=== PATIENT | male | born 1970 | race Caucasian/White ===

== ENCOUNTER 2022-06-01 12:06 | Day surgery (SDC) | payer OTHER, SELFPAY ==
[2022-05-20 09:09] VITALS: BMI 26.1
[2022-05-20 10:26] VITALS: BMI 25.2
[2022-06-01 12:20] VITALS: BP 136/77; PULSE 68; RESP 18; TEMP 37.2; O2SAT 100
--- NOTE | 2022-06-01 12:34 | WPDANESEPPF ---
Anes - Initial Pre Proc Eval Procedure: Operation Date: 06/01/22 13:45 Proposed Procedures p Screening Colonoscopy - Paul Young MD Date/Time: 06/01/22 12:34 Surgeon: Paul Young MD Pre Op Diagnosis: Neoplasm Screening Patient Data Age: 51 Gender: M Height: 1.8 m Weight: 81.2 kg Allergies Allergy/AdvReac Type Severity Reaction Status Date / Time erythromycin base Allergy Mild Rash Verified 06/01/22 12:23 Home Medications Medication Instructions Recorded Confirmed Type fexofenadine-pseudoephedrine ER 1 tablet PO DAILY 03/09/22 05/20/22 History 180 mg-240 mg tablet,ext.release 24 hr (Khadra-D 24 Hour) multivitamin 1 tablet PO DAILY 03/09/22 05/20/22 History tadalafil 20 mg tablet (Cialis) 20 mg PO DAILY PRN sexual activity 03/09/22 05/20/22 History valsartan 320 1 tablet PO DAILY #90 tabs 04/01/22 05/20/22 Rx mg-hydrochlorothiazide 12.5 mg tablet sodium,potassium,mag sulfates 17.5 See Rx Instructions PO .COMPLEX 05/20/22 05/20/22 Rx gram-3.13 gram-1.6 gram oral soln #354 mL (Suprep Bowel Prep Kit) syringe with needle 3 mL 25 x 1 #100 ea 05/20/22 05/20/22 Rx 1/2 (BD Luer-Sharmin Syringe) testosterone cypionate 200 mg/mL See Rx Instructions IM ONCE 05/21/22 History intramuscular kit Patient hx anesthesia problems: none Family hx anesthesia problems: none Results Review: All pre-operative results and documents have been reviewed as part of the pre-operative evaluation. 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 Prostate cancer screening Radius fracture Seasonal allergies Testicular hypofunction Ulna fracture Umbilical hernia Surgical History Surgical History History of ureteroscopy Social History Social History Smoking status: Never smoker Second hand tobacco smoke exposure: No Alcohol intake: never Substance use: never Substance use type: does not use Lack of Transportation: No Lack of Food: Never True Current Housing: I Have Housing Concerned About Future Housing: No Difficulty Paying Gas/Electric Bills: No Difficulty Paying for Meds: No Currently Unemployed: No Education: Trade/Vocational Certificate Difficulty w/ Childcare or Family Care: No Living arrangements: with family Gender identity (if verbalized by the patient): Male Spiritual care concerns: No Anes - Eval Final PreProcedure Day of Procedure 06/01/22 12:34 Patient weight: normal Heart: regular rate and rhythm Lungs: clear to auscultation Airway: Mallampati scale class II Neurological: alert and oriented Last oral intake: >/= 8 hours ASA classification: II Emergent: no Anesthetic plan: proceed Anesthesia type and monitoring: general GIVS and standard monitoring Results Review: All pre-operative results and documents have been reviewed as part of the pre-operative evaluation. Informed Consent: The patient's anesthetic plan and its attendant risks and benefits were discussed with the patient/family/POA. Questions were solicited and answers provided to the satisfaction of the patient/family/POA.
[2022-06-01] MEDS: LACTATED RINGERS 1,000 ML 150 ML IV CONT (12:38)
--- NOTE | 2022-06-01 13:18 | PM.HPGS ---
History of Present Illness History of Present Illness Consent: Risks, benefits, and alternatives have been discussed and questions answered. Patient agrees to proceed with procedure. Chief complaint: Neoplasm Screening Narrative: Ying Quiñones is a 51 year old male Presents for screening colonoscopy. Patient's current weight appetite and bowel movements are normal. Patient denies abdominal pain. He has had no bleeding. Family history Significant both mother and father have had colon polyps. Review of Systems Review of Systems: Review of systems noncontributory. 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 Prostate cancer screening Radius fracture Seasonal allergies Testicular hypofunction Ulna fracture Umbilical hernia Surgical History Surgical History History of ureteroscopy Social History Social History Smoking status: Never smoker Second hand tobacco smoke exposure: No Alcohol intake: never Substance use: never Substance use type: does not use Lack of Transportation: No Lack of Food: Never True Current Housing: I Have Housing Concerned About Future Housing: No Difficulty Paying Gas/Electric Bills: No Difficulty Paying for Meds: No Currently Unemployed: No Education: Trade/Vocational Certificate Difficulty w/ Childcare or Family Care: No Living arrangements: with family Gender identity (if verbalized by the patient): Male Spiritual care concerns: No Meds Home Medications and Allergies Home Medications Medication Instructions Recorded Confirmed Type fexofenadine-pseudoephedrine ER 1 tablet PO DAILY 03/09/22 05/20/22 History 180 mg-240 mg tablet,ext.release 24 hr (Khadra-D 24 Hour) multivitamin 1 tablet PO DAILY 03/09/22 05/20/22 History tadalafil 20 mg tablet (Cialis) 20 mg PO DAILY PRN sexual activity 03/09/22 05/20/22 History valsartan 320 1 tablet PO DAILY #90 tabs 04/01/22 05/20/22 Rx mg-hydrochlorothiazide 12.5 mg tablet sodium,potassium,mag sulfates 17.5 See Rx Instructions PO .COMPLEX 05/20/22 05/20/22 Rx gram-3.13 gram-1.6 gram oral soln #354 mL (Suprep Bowel Prep Kit) syringe with needle 3 mL 25 x 1 #100 ea 05/20/22 05/20/22 Rx 1/2 (BD Luer-Sharmin Syringe) testosterone cypionate 200 mg/mL See Rx Instructions IM ONCE 05/21/22 History intramuscular kit Allergies Allergy/AdvReac Type Severity Reaction Status Date / Time erythromycin base Allergy Mild Rash Verified 06/01/22 12:23 Vital Signs Vital Signs - 24 hr 06/01/22 12:20 Temperature 99 F Pulse Rate 68 Respiratory Rate 18 Blood Pressure 136/77 Pulse Oximetry 100 Oxygen Delivery Room Air Exam Narrative: Physical exam reveals patient to be alert. Vital signs stable. HEENT exam is unremarkable. Patient is anicteric. Lungs are clear to auscultation and percussion. Heart is without murmur or extra sounds. Abdomen bowel sounds present soft nontender with no organomegaly. Digital external rectal exam is normal. Assessment and Plan Assessment and plan (1) Colon cancer screening: Code(s): Z12.11 - Encounter for screening for malignant neoplasm of colon Status: Acute Assessment and Plan: Patient presents today for screening colonoscopy. Family history is significant both mother and father have had colon polyps. Plan for screening colonoscopy further recommendations will be given after endoscopy.
[2022-06-01 14:06] VITALS: BP 100/57; PULSE 65; RESP 16; O2SAT 98
[2022-06-01 14:16] VITALS: BP 96/55; PULSE 65; RESP 16; O2SAT 100
--- NOTE | 2022-06-01 14:23 | WPDANESPN ---
Anes - Prog Note Post-Op Date/Time: 06/01/22 14:23 Cardiovascular status: normal Respiratory status: normal Airway patency: baseline Mental status: baseline Post-Op hydration status: normal Vital Signs: Last Vital Signs Temp 37.2 C 06/01/22 12:20 Pulse 65 06/01/22 14:16 Resp 16 06/01/22 14:16 BP 96/55 L 06/01/22 14:16 Pulse Ox 100 06/01/22 14:16 O2 Del Method Room Air 06/01/22 14:16 Pain Score (VAS): 0 I/O: Intake & Output 05/31/22 06/01/22 06/01/22 23:59 07:59 15:59 Intake Total 675 Balance 675 Patient Feedback: Patient satisfied with anesthetic care.
[2022-06-01 14:25] VITALS: BP 114/81; PULSE 64; RESP 16
--- NOTE | 2022-06-01 14:35 | SUR.PHASEII ---
PT AWAKE AND ALERT. DENIES PAIN. EATING AND DRINKING. READY FOR DISCHARGE.
== END 2022-06-01 14:43 | disposition home or self-care (01) ==
PROVIDERS: PCP Internal Medicine; Visit Provider Internal Medicine Gastroenterology
PROC: 0DJD8ZZ Inspection of Lower Intestinal Tract, Via Natural or Artificial Opening Endoscopic (ICD-10-PCS; CPT 45378; principal; 2022-06-01 13:45)
DX: Z12.11 Encounter for screening for malignant neoplasm of colon (principal)
CPT/HCPCS: 45378

== ENCOUNTER 2023-12-05 12:22 | Emergency (ER) | payer OTHER, BC, SELFPAY ==
--- NOTE | ~2023-12-05 | XR_ITS ---
1 foot Technique: AP, oblique, and lateral views were obtained. Clinical History: Injury Findings: No acute fracture or dislocation is seen. Osseous alignment is anatomic. There is mild dege nerative change about the first MTP joint. Soft tissues are unremarkable. Impression: No acute abnormality. Mild degenerative change of the first MTP joint. Reviewed, dictated and finalized at location . Impression: No acute abnormality. Mild degenerative change of the first MTP joint.
[2023-12-05 12:29] VITALS: BP 131/62; PULSE 82; RESP 16; TEMP 37.1; O2SAT 98
--- NOTE | 2023-12-05 12:36 | ED.LOWEXIN ---
HPI - Extremity Injury (Lower) General Chief Complaint: Extremity Injury, Lower Stated Complaint: Injured Left Foot Time Seen by Provider: 12/05/23 12:36 Source: patient Mode of arrival: ambulatory Limitations: no limitations History of Present Illness HPI Narrative: 53 yo M presents with c/o pain to dorsal aspect L foot after dropping cabinet onto foot. States cabinet was solid wood and was inside of a box. Ambulatory with limp. Was wearing work boots at time of injury. All systems reviewed and negative except as noted above. Related Data Home Medications Medication Instructions Recorded Confirmed multivitamin 1 tablet PO DAILY 03/09/22 12/05/23 tadalafil 20 mg tablet (Cialis) 20 mg PO DAILY PRN sexual activity 03/09/22 12/05/23 fluticasone propionate 50 2 spray intranasal DAILY 06/16/23 12/05/23 mcg/actuation nasal spray,suspension Allergies Allergy/AdvReac Type Severity Reaction Status Date / Time erythromycin base Allergy Mild Rash Verified 12/05/23 12:28 Review of Systems Review of Systems: CONSTITUTIONAL: Denies fever, chills, or sweats. EYES: Denies visual changes, redness, or discharge. ENT: Denies rhinorrhea, congestion, sore throat, or otalgia. CARDIOVASCULAR: Denies chest pain, palpitations, or edema. RESPIRATORY: Denies cough or dyspnea. GASTROINTESTINAL: Denies abdominal pain, nausea, vomiting, or diarrhea. GENITOURINARY: Denies dysuria or hematuria. SKIN: Denies rash or itching. MUSCULOSKELETAL: Reports pain and swelling to dorsal aspect of left foot. NEUROLOGIC: Denies headache, numbness, or weakness. PSYCHIATRIC: Denies anxiety or depression. All other systems reviewed are negative, except as documented in HPI. [facility] Past Medical History Medical History Benign essential hypertension BMI 26.0-26.9,adult Colon cancer screening Encounter for preventive health examination Encounter for routine adult health examination without abnormal findings Encounter to establish care FHx: coronary artery disease High frequency hearing loss History of kidney stones On correction drug therapy Onychomycosis Prostate cancer screening Radius fracture Seasonal allergies Testicular hypofunction Ulna fracture Umbilical hernia Surgical History Surgical History History of ureteroscopy Social History Social History Smoking status: Never smoker Second hand tobacco smoke exposure: No Alcohol intake: never Substance use: never Substance use type: does not use Lack of Transportation: No Lack of Food: Never True Current Housing: I Have Housing Concerned About Future Housing: No Difficulty Paying Gas/Electric Bills: No Difficulty Paying for Meds: No Currently Unemployed: No Education: Trade/Vocational Certificate Difficulty w/ Childcare or Family Care: No Living arrangements: with family Occupation/Education: occupation Gender identity (if verbalized by the patient): Male Spiritual care concerns: No Comments At time of signature, agree with nursing past medical, surgical, social and family history. There is no relevant family history pertinent to the presenting complaint. Exam Narrative: GENERAL: This is a well-nourished, well-developed patient, in no apparent distress. HEAD: normocephalic, atraumatic. EYES: PERRL. Sclera clear/white. Vision is grossly intact. EARS: External ears normal NOSE: External nose normal NECK: Neck supple, non-tender without lymphadenopathy, masses or thyromegaly. CARDIOVASCULAR: Regular rate and rhythm without murmurs, gallops, or rubs. RESPIRATORY: Clear to auscultation. Breath sounds equal bilaterally. No wheezes, rales, or rhonchi. SKIN: warm, Dry, intact with no suspicious lesions or rash, good texture and turgor. NEURO: awake, alert, and oriented to person, shanelle
== END 2023-12-05 13:06 | disposition home or self-care (01) ==
PROVIDERS: Emergency Provider Nurse Practitioner Family; PCP Internal Medicine
DX: S90.32XA Contusion of left foot, initial encounter (principal); W20.8XXA Other cause of strike by thrown, projected or falling object, initial encounter; I10 Essential (primary) hypertension
CPT/HCPCS: 73630; 99213; G0463

== ENCOUNTER 2023-12-27 15:15 | Outpatient (CLI) | payer BC, SELFPAY ==
--- NOTE | ~2023-12-27 | XR_ITS ---
Right Knee Technique: AP, lateral, and sunrise views were obtained. Clinical History: Pain Findings: No fracture or dislocation is seen. Osseous alignment is anatomic. There is minimal spurrin g at the lateral joint line and patella. Soft tissues are unremarkable. No joint effusion is seen. Impression: Minimal degenerative spurring, as above. Reviewed, dictated and finalized at location M. Impression: Minimal degenerative spurring, as above.
--- NOTE | ~2023-12-27 | US_ITS ---
EXAMINATION: US renal BI DATE: 12/27/2023 15:33 INDICATION: Abnormal findings of blood chemistry. TECHNIQUE: Multiple ultrasound grayscale images of the kidneys were obtained. COMPARISON: None. FINDINGS: The right kidney measures 11.2 x 4.9 x 5.0 cm. The left kidney measures 10.6 x 4.5 x 6.3 cm. The kidn eys demonstrate normal echogenicity. There bilateral anechoic renal cysts measuring up to 4.3 cm and 3.1 cm in the right kidney and 3.9 cm in the left kidney. There is no hydronephrosis in either kidney . No stones identified. The bladder is normal. IMPRESSION: 1. Bilateral renal cysts. No hydronephrosis. Reviewed, dictated and finalized at location B.
== END 2023-12-27 15:16 ==
PROVIDERS: PCP Internal Medicine; Visit Provider Internal Medicine
DX: M25.761 Osteophyte, right knee (principal); R79.89 Other specified abnormal findings of blood chemistry; N28.1 Cyst of kidney, acquired
CPT/HCPCS: 73562; 76775

== ENCOUNTER 2024-01-31 08:17 | Outpatient (CLI) | payer BC, SELFPAY ==
--- NOTE | ~2024-01-31 | MR_ITS ---
MRI of the right knee Clinical history: Medial pain Technique: Coronal proton density and proton density-weighted images, sagittal proton-density and T2 fat-sat images, and axial proton-density fat-saturated images were acquired. Findings: Anterior and posterior cruciate ligaments are intact. Medial collateral ligament and the la teral collateral ligament complex are intact. Popliteus tendon is intact. There is complex tearing extensively involving the body segment of the medial meniscus, probably exte nding to the posterior horn. There is focal complex tearing of the posterior horn of the lateral meni scus. There is probable focal high-grade cartilage at the inferior patella with focal subchondral cystic ch john and reactive marrow edema at the inferior patellar pole. There is extensive high-grade chondroma lacia of the medial tibial plateau with subchondral cystic change and mild reactive marrow edema in t his region. There is high-grade chondromalacia at the posterior and central aspects of the medial fem oral condyle, with subchondral cystic change and reactive marrow edema. There is focal moderate to hi gh-grade chondromalacia at the lateral tibial plateau. Small tricompartmental osteophytes are present . Extensor mechanism is intact. Moderate joint effusion present. No Collier's cyst. Impression: Extensive complex tearing of the posterior horn and body of medial meniscus. Complex tearing of the posterior horn of the lateral meniscus. Tricompartmental degenerative change, as detailed above, worst at the inferior patellar pole and medi al compartment/medial joint line. Moderate joint effusion. Reviewed, dictated and finalized at [facility]. Impression: Extensive complex tearing of the posterior horn and body of medial meniscus. Complex tearing of the posterior horn of the lateral meniscus. Tricompartmental degenerative change, as detailed above, worst at the inferior patellar pole and medial compartment/medial joint line. Moderate joint effusion.
== END 2024-01-31 08:18 ==
PROVIDERS: PCP Internal Medicine; Visit Provider Internal Medicine
DX: S83.271A Complex tear of lateral meniscus, current injury, right knee, initial encounter (principal); M17.11 Unilateral primary osteoarthritis, right knee; M25.461 Effusion, right knee; X58.XXXA Exposure to other specified factors, initial encounter
CPT/HCPCS: 73721

== ENCOUNTER 2024-06-25 15:50 | Outpatient (CLI) | payer BC, SELFPAY ==
--- NOTE | ~2024-06-25 | XR_ITS ---
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 RESULT: Lines, tubes, and devices: None. Lungs and pleura: Clear. Cardiomediastinal silhouette: Stable. Other: No acute osseous or upper abdominal finding. IMPRESSION: No acute cardiopulmonary process. Reviewed, dictated and finalized at location K. CTOR OF MARKETING
== END 2024-06-25 15:51 | disposition home or self-care (01) ==
LOC: GOSHIMG 15:51
PROVIDERS: PCP Internal Medicine; Visit Provider Internal Medicine
DX: R05.9 Cough, unspecified (principal)
CPT/HCPCS: 71046

== ENCOUNTER 2025-04-03 15:04 | Outpatient (CLI) | payer BC, SELFPAY ==
--- NOTE | ~2025-04-03 | XR_ITS ---
EXAMINATION: XR knee LT min 4V, 04/03/2025 15:18 CDT HISTORY: Pain in left knee x 8 weeks COMPARISON: No comparisons available. Findings: No acute fracture or malalignment. Moderate tricompartmental degenerative changes Soft tissues unremarkable. Impression: No acute fracture or malalignment. Reviewed, dictated and finalized at location P. Impression: No acute fracture or malalignment.
--- NOTE | ~2025-04-03 | XR_ITS ---
EXAMINATION: XR knee RT min 4V, 04/03/2025 15:18 CDT HISTORY: Unilateral primary osteoarthritis, right knee, pain x 8 wee COMPARISON: No comparisons available. Findings: No acute fracture or malalignment. Moderate tricompartmental degenerative changes Soft tissues unremarkable. Impression: No acute fracture or malalignment. Reviewed, dictated and finalized at location P. Impression: No acute fracture or malalignment.
== END 2025-04-03 15:05 | disposition home or self-care (01) ==
LOC: GOSHIMG 15:05
PROVIDERS: PCP Orthopaedic Surgery; Visit Provider Orthopaedic Surgery
DX: M17.11 Unilateral primary osteoarthritis, right knee (principal); M25.562 Pain in left knee
CPT/HCPCS: 73564

== ENCOUNTER 2025-06-25 10:34 | Outpatient (CLI) | payer BC, SELFPAY ==
--- NOTE | ~2025-06-25 | XR_ITS ---
EXAMINATION: XR chest 2V 06/25/2025 10:43 INDICATION: Cough PROCEDURE: 2 view chest COMPARISON: 06/25/2024 FINDINGS: The lungs are clear. The cardiomediastinal silhouette is within normal limits. There are no pleural effusions. There is no pneumothorax suspected. IMPRESSION: 1: NO ACUTE CARDIOPULMONARY DISEASE. Reviewed, dictated and finalized at location O. 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
== END 2025-06-25 10:35 | disposition home or self-care (01) ==
LOC: GOSHIMG 10:35
PROVIDERS: PCP Internal Medicine; Visit Provider Internal Medicine
DX: R05.9 Cough, unspecified (principal)
CPT/HCPCS: 71046